=== PATIENT | male | born 1970 | race African-American/Black ===

== ENCOUNTER → 2021-04-27 | Outpatient (CLI) | payer OTHER ==
--- NOTE | 2021-04-27 14:07 | CARDNUC ---
[place] [address] CARDIAC NUCLEAR IMAGING REPORT Name: NEFTALI HANNON Room: [facility]#: [id number] Admission: 04/27/21 Attend Phys: Khushboo Bergman, Discharge: Date of : 72 Date of Service: 04/27/21 1407 Report #: [id number] THIS REPORT FOR: cc: Mina Boyce Robin L. FNP Park, Jin S. MD ~ APPROVED REPORT Imaging Protocol: Rest Tc-99m/Stress Tc-99m 1 day Study performed: 04/27/2021 09:00:00 Indication: Abnormal EKG, Chest pain Patient Location: Out-Patient Stress Tech: CHARLINE LEACH Stress Nurse: Karol Chaves RN NM Tech:GENA Bermeo Ht: 5 ft 6 in Wt: 193 lbs BSA: 1.97 m2 BMI: 31.14 Medical History Medical History: HTN, Hyperlipidemia Medications: asa-325, crestor, toprolol-xl Allergies: No known drug allergies Cardiac Risk Factors: Age, Hyperlipidemia, HTN Exercise History: Physically active Meds Held (24 hrs): toprol xl Resting Data Rest SPECT myocardial perfusion imaging was performed in supine position 30 minutes following the intravenous injection of 11.1 mCi of Tc-99m Sestamibi. Time of rest injection: 914 Date: 04/27/2021 The images were gated to evaluate regional wall motion and calculate left ventricular ejection fraction. Administration Route: IV Administration Site: Right AC Exercise Stress At peak stress, the patient was injected intravenously with 35.4mCi of Tc-99m Sestamibi. Time of stress injection: 1034 Date: 04/27/2021 Administration Route: IV Administration Site: [place] [address] CARDIAC NUCLEAR IMAGING REPORT Name: NEFTALI HANNON Room: [facility]#: [id number] Admission: 04/27/21 Attend Phys: Khushboo Bergman, Discharge: Date of : 72 Date of Service: 04/27/21 1407 Report #: [id number] Gated Stress SPECT was performed 30 minutes after stress injection. The images were gated to evaluate regional wall motion and calculate left ventricular ejection fraction. Prone imaging was performed. Stress Test Details Stress Test: Exercise stress testing was performed using a Fermin protocol. HR Max Heart Rate (APMHR): 171 bpm Resting HR: 60 bpm Target HR (85% APMHR): 145 bpm Max HR Achieved: 150 bpm % of APMHR: 87 Recovery HR: 90 bpm BP Resting BP: 126/89 mmHg Max BP: 171/83 mmHg Recovery BP: 127/83 mmHg ECG Resting ECG: Sinus Rhythm, RBBB Stress ECG: Sinus Rhythm, RBBB ST Change: Non-ischemic Clinical Reason for Termination: Dyspnea, Fatigue Exercise duration: 9 min 03 sec Exercise capacity: 10.2194 METs Functional Aerobic Impairment 94% Study Quality Study: Good Artifact: Moderate Diaphragmatic artifact Study Data Post stress, the left ventricular ejection was 67%.. SSS: 4 SRS: 1 SDS: 3 TID = 1.00. Perfusion There is a medium area of moderately reduced uptake in the basal and mid segment of the inferior wall which is seen on the stress images as well as the resting images. This [place] [address] CARDIAC NUCLEAR IMAGING REPORT Name: NEFTALI HANNON Room: [facility]#: [id number] Admission: 04/27/21 Attend Phys: Khushboo Bergman, Discharge: Date of : 72 Date of Service: 04/27/21 1407 Report #: [id number] and is most consistent with attenuation artifact. Wall Motion Normal left ventricular wall motion. Nuclear Conclusion ECG Findings: negative for ischemia Clinical Findings: negative for ischemia Nuclear Findings: negative for ischemia Exercise Capacity: average Left Ventricular Function: normal This study is of low probability for inducible ischemia or prior infarct. Normal global and segmental LV systolic function. Artifact: Moderate Diaphragmatic artifact <ELECTRONICALLY SIGNED> By: Wagner Salomon MD [id number] Wagner Salomon MD /LIANNE
== END ==
LOC: M.NUC 04-12 10:03 → M.CRD 04-26 09:00 → M.NUC 04-26 10:00
PROVIDERS: ATTEND Internal Medicine
DX: R07.9 Chest pain, unspecified (principal)